=== PATIENT | male | born 1940 | race Caucasian/White ===

== ENCOUNTER 2017-07-30 08:16 | Day surgery (SDC) | payer MEDICARE ==
[~2017-07-30] VITALS: Ht 188 cm; Wt 86.2 kg
--- NOTE | ~2017-07-30 | OP ---
PATIENT NAME: INEZ PEREZ MEDICAL RECORD: [id number] :38 LOCATION:D.OPS ADMISSION DATE: SURGEON: GAETANO CEBALLOS MD DATE OF OPERATION: 07/30/2017 PREOPERATIVE DIAGNOSES: 1. History of multiple gastric polyps. 2. History of anemia. 3. Band-like epigastric abdominal pain. POSTOPERATIVE DIAGNOSES: 1. History of multiple gastric polyps. 2. History of anemia. 3. Band-like epigastric abdominal pain. 4. Three pedunculated cardio-gastric polyps. 5. A large number of diminutive sessile polyps ranging in diameter from 4 mm to 8 mm. 6. Perhaps new polyp which is carpeting polyp that is diminutive in the duodenal bulb, best seen with narrow band imaging. PROCEDURES: 1. Esophagogastroduodenoscopy with antral biopsies. 2. Gastric snare polypectomies times 3. 3. Ablation of 15 sessile polyps utilizing the argon plasma country printer with the esophageal setting in the forced mode. OPERATIVE COURSE: The patient was conveyed to the operating room electively on 07/30/2017. General anesthesia was induced by the anesthesia staff. A bite block was inserted. A gastroscope was inserted into the mouth. It was advanced easily into the hypopharynx. The esophagus was easily intubated as were the stomach and duodenum. Upon withdrawal, retroflexed and angulus views were obtained. Antral biopsies were obtained. I utilized the snare to perform 3 snare polypectomies in the cardia of the stomach. Each one of these polyps were grasped with an endoscopic retrieval net and was withdrawn out through the mouth. I reintubated the stomach. The base of these snare polyps was then ablated utilizing the argon plasma country printer. Fifteen more diminutive polyps were ablated with the argon plasma country printer without the need for biopsy. There was no bleeding. The endoscope was then withdrawn under direct vision. I will see the patient in my office in 2-3 weeks. I will plan for his next EGD with the argon plasma country printer to take place in 1 year. I identified no reason for the patient's epigastric band-like abdominal pain. He has undergone a cholecystectomy in the past. TRANSINT:[id number] Voice Confirmation ID: [id number] DOCUMENT ID: [id number] GAETANO CEBALLOS MD at 0938 CC: [id number] DICTATION DATE: 07/30/17 1315 PEGA DEVELOPER: 07/30/17 1425 [facility] 07/30/17 [place] [id number] [place] [id number]
--- NOTE | ~2017-07-30 | HP ---
PATIENT: INEZ PEREZ MEDICAL RECORD: [id number] ACCOUNT: [id number] LOCATION:SOPHIA : 38 ADMISSION DATE: 07/30/17 HISTORY AND PHYSICAL EXAMINATION CHIEF COMPLAINT: History of gastric polyps. HISTORY OF PRESENT ILLNESS: The patient is here to undergo a gastric polypectomy utilizing the argon plasma follow up clerk. The risks, possible complications and alternatives to procedure were explained to the patient. He elects to proceed. MEDICATIONS: Home medications have been reviewed. ALLERGIES: No known drug allergies. SOCIAL HISTORY: Nonsmoker. PAST MEDICAL AND SURGICAL HISTORY: Hypothyroidism, on replacement therapy, hypertension, history of gastric polyps. REVIEW OF SYSTEMS: Negative for CVA or seizures. Negative for renal disease or hepatitis. PHYSICAL EXAMINATION: GENERAL: The patient does not appear acutely ill. He does not appear chronically ill. VITAL SIGNS: Reviewed. EARS: External ears appear normal. EYES: Extraocular movements are intact. NECK: Trachea is midline. CHEST: No intercostal retractions. PULMONARY: Nonlabored, no stridor. ABDOMEN: Nontender. IMPRESSION: History of multiple gastric polyps. PLAN: EGD with hot polypectomy utilizing argon plasma follow up clerk. TRANSINT:[id number] Voice Confirmation ID: [id number] DOCUMENT ID: [id number] GAETANO CEBALLOS MD at 0938 CC: SUSAN CONWAY MD and DELON GONZALEZ MD [id number] DICTATION DATE: 07/30/17 1229 PRODUCTION EXPERT: 07/30/17 1257 [facility] [place] 07/30/17 [place] [id number]
[~2017-07-30 08:16] MED LIST: AZULFIDINE500 MG PO; CHOLESTYRAMIN4 G/PK1 PO; LEVO-T300 MCG PO; PEPCID20 MG PO; PROTONIX40 MG PO; ULTRAM50 MG PO; ZESTORETIC 20/21 TAB PO
[2017-07-30 08:47] VITALS: BP 131/67; Ht 188 cm; Wt 86.2 kg
[2017-07-30 09:12] LABS: HEMATOCRIT 28.5 % (42.0-54.0); HEMOGLOBIN 9.9 g/dL (13.5-17.5); MCH 28.4 pg (26.0-34.0); MCHC 34.7 g/dL (31.0-37.0); MCV 81.9 fL (80.0-100.0); MEAN PLATELET VOLUME 8.4 fL (7.4-10.4); RBC 3.48 10x6/uL (4.20-6.10); RDW 17.5 % (11.5-14.5); WBC 6.2 10x3/uL (4.8-10.8)
[2017-07-30 09:25] LABS: ANION GAP 12.5 mmol/L (8-16); CALCIUM 8.5 mg/dL (8.5-10.1); CARBON DIOXIDE 24.8 mmol/L (21.0-32.0); CREATININE - SERUM 1.1 mg/dL (0.6-1.3); POTASSIUM - SERUM 4.3 mmol/L (3.5-5.1)
== END 2017-07-30 13:50 | disposition home or self-care (01) ==
LOC: D.OPS 08:16
PROVIDERS: Anesthesiology
DX: K31.7 Polyp of stomach and duodenum (principal); E03.9 Hypothyroidism, unspecified; I10 Essential (primary) hypertension; D64.9 Anemia, unspecified; R10.13 Epigastric pain; Z01.812 Encounter for preprocedural laboratory examination

== ENCOUNTER 2019-08-10 08:28 | Day surgery (SDC) | payer MEDICARE ==
[~2019-08-10] VITALS: Ht 188 cm; Wt 86.4 kg
--- NOTE | ~2019-08-10 | OP ---
PATIENT NAME: INEZ PEREZ MEDICAL RECORD: [id number] :38 LOCATION:D.OPS ADMISSION DATE: SURGEON: GAETANO CEBALLOS MD DATE OF OPERATION: 08/10/2019 PREOPERATIVE DIAGNOSES: 1. History of gastric polyps. 2. Anemia. POSTOPERATIVE DIAGNOSES: 1. History of gastric polyps. 2. Anemia. 3. Numerous sessile as well as somewhat pedunculated gastric polyps. PROCEDURES: 1. Esophagogastroduodenoscopy with antral biopsies to rule out Helicobacter pylori. 2. Snare gastric polypectomies times 2. 3. Hot biopsy forceps polypectomy times 1. 4. Argon plasma coagulation ablation of 23 sessile gastric polyps. SURGEON: Gaetano Ceballos MD HEALTH ADMINISTRATION TEACHER: None. BLOOD LOSS: Less than 25 cc. ANESTHESIA: IV sedation. COMPLICATIONS: None. The risks, possible complications and alternatives to the procedure were explained to the patient. He elects to proceed. ENDOSCOPIC COURSE: The patient was conveyed to endoscopy suite electively on 08/10/2019. IV sedation was induced by the anesthesia staff. A bite block was inserted. A gastroscope was inserted into the mouth. It was advanced easily into the hypopharynx. The esophagus was easily intubated as were the stomach and duodenum. Upon withdrawal, retroflexed and angulus views were obtained. Antral biopsies were obtained. I chose the 2 largest polyps to perform snare polypectomies upon. While in retroflexion, I was able to snare both of these polyps, which were at the gastric cardia. Utilizing the coagulation setting and then the cut setting, I was able to perform the snare polypectomies. The polyps were then removed in their entireties. I then grasped a polyp with the hot biopsy forceps. A hot biopsy forceps polypectomy was then performed. There were other sessile polyps, which were really too small to undergo microscopic examination. These were thoroughly ablated utilizing the esophageal setting in the forced mode, with the argon plasma surveying crew rodman. There was no further bleeding. I withdrew the endoscope under direct vision. OPERATIVE REPORT [id number] INEZ PEREZ I will see the patient in my office in 2-3 weeks. I will plan for his next upper endoscopy to take place whenever he is symptomatic. TRANSINT:[id number] Voice Confirmation ID: [id number] DOCUMENT ID: [id number] GAETANO CEBALLOS MD CC: SUSAN CONWAY MD and DELON GONZALEZ [id number] DICTATION DATE: 08/10/19 1154 SENIOR HEALTH CONSULTANT: 08/10/19 1416 [facility] 08/10/19 [facility] [address] [place] [address]
--- NOTE | ~2019-08-10 | HP ---
PATIENT: INEZ PEREZ MEDICAL RECORD: [id number] ACCOUNT: [id number] LOCATION:SOPHIA : 38 ADMISSION DATE: 08/10/19 PCP: SUSAN CONWAY MD HISTORY AND PHYSICAL EXAMINATION CHIEF COMPLAINT: History of gastric polyps. I performed a gastric polypectomy as well as ablation of numerous gastric polyps on this patient in the past. He has noted no dark looking in stools. He is anemic and this has been fairly persistent. ALLERGIES: No known drug allergies. HOME MEDICATIONS: Please see the nursing list. SOCIAL HISTORY: Nonsmoker. PAST MEDICAL AND SURGICAL HISTORY: Gastric polyps, hypothyroidism, on replacement therapy, hypertension, history of Crohn's disease as well. PHYSICAL EXAMINATION: GENERAL: The patient does not appear acutely ill. He does not appear chronically ill. VITAL SIGNS: Reviewed. EARS: External ears appear normal. EYES: Extraocular movements are intact. NECK: Trachea is midline. CHEST: No intercostal retractions. PULMONARY: Nonlabored, no stridor. IMPRESSION: 1. History of gastric polyps. 2. Anemia. PLAN: EGD with polypectomies or ablation of gastric polyps. TRANSINT:[id number] Voice Confirmation ID: [id number] DOCUMENT ID: [id number] GAETANO CEBALLOS MD CC: SUSAN CONWAY MD and DELON GONZALEZ [id number] DICTATION DATE: 08/10/19 1109 PAPER ROLLER: 08/10/19 1135 [facility] [address] [place] [address]
[2019-08-10 09:06] LABS: ANION GAP 8.4 mmol/L (8-16); CALCIUM 8.3 mg/dL (8.5-10.1); CARBON DIOXIDE 32.3 mmol/L (21.0-32.0); CREATININE - SERUM 1.2 mg/dL (0.6-1.3); POTASSIUM - SERUM 4.7 mmol/L (3.5-5.1)
[2019-08-10 09:07] LABS: BASOPHILS 0.3 % (0-2); EOSINOPHILS 1.5 % (0-7); HEMATOCRIT 31.4 % (42.0-54.0); HEMOGLOBIN 10.6 g/dL (13.5-17.5); IMMATURE GRANULOCYTES 3.9 % (0-5); LYMPHOCYTES 15.3 % (15-50); MCH 27.8 pg (26.0-34.0); MCHC 33.8 g/dL (31.0-37.0); MCV 82.4 fL (80.0-100.0); MEAN PLATELET VOLUME 8.4 fL (7.4-10.4); MONOCYTES 7.8 % (2-11); NEUTROPHILS 71.2 % (40-80); PLATELET COUNT 156 10x3/uL (130-400); RBC 3.81 10x6/uL (4.20-6.10); RDW 16.2 % (11.5-14.5); WBC 5.9 10x3/uL (4.8-10.8)
[2019-08-10 09:31] VITALS: BP 126/61; Ht 188 cm; Wt 86.4 kg
--- NOTE | 2019-08-10 12:14 | NUR ---
1200-RECD FROM GI LAB. ALERT. IV PATENT. TAKING LIQUIDS WITHOUT NAUSEA.
--- NOTE | 2019-08-10 12:35 | NUR ---
1231 IV DC'D. CATHETER TIP INTACT. NO BLEEDING AT SITE. BANDAID APPLIED.
[2019-08-10] MEDS ORDERED: COREG25 MG PO (16:42)
[2019-08-10] MEDS ORDERED: LEVAQUIN750 MG PO (18:52)
== END 2019-08-10 12:39 | disposition home or self-care (01) ==
LOC: D.OPS 08:28
PROVIDERS: Anesthesiology; ATTEND Surgery
DX: K31.7 Polyp of stomach and duodenum (principal); D64.9 Anemia, unspecified

== ENCOUNTER 2019-08-10 16:35 | Emergency (ER) | payer MEDICARE ==
[~2019-08-10] VITALS: Ht 188 cm; Wt 86.4 kg
[2019-08-10 16:38] VITALS: Ht 188 cm; Wt 86.4 kg
[2019-08-10] MEDS ORDERED: COREG25 MG PO (16:42)
[2019-08-10 17:29] LABS: BASOPHILS 0.2 % (0-2); EOSINOPHILS 0.3 % (0-7); HEMATOCRIT 31.9 % (42.0-54.0); IMMATURE GRANULOCYTES 1.7 % (0-5); LYMPHOCYTES 7.2 % (15-50); MCH 28.4 pg (26.0-34.0); MCHC 34.5 g/dL (31.0-37.0); MCV 82.2 fL (80.0-100.0); MEAN PLATELET VOLUME 8.5 fL (7.4-10.4); MONOCYTES 6.4 % (2-11); NEUTROPHILS 84.2 % (40-80); PLATELET COUNT 139 10x3/uL (130-400); RBC 3.88 10x6/uL (4.20-6.10); RDW 16.2 % (11.5-14.5); WBC 10.1 10x3/uL (4.8-10.8)
[2019-08-10 17:36] LABS: CALC OSMOLALITY 282 mosm/kg (275-300); CALCIUM 8.5 mg/dL (8.5-10.1); CARBON DIOXIDE 30.3 mmol/L (21.0-32.0); CHLORIDE - SERUM 105 mmol/L (98-107); CREATININE - SERUM 1.2 mg/dL (0.6-1.3); GLUCOSE 115 mg/dL (74-106); POTASSIUM - SERUM 4.4 mmol/L (3.5-5.1); SODIUM 141 mmol/L (136-145); UREA NITROGEN 15 mg/dL (7-18); eGFR NON AFRICAN AMERICAN 62 mL/min (90-120)
[2019-08-10 17:37] LABS: KETONE - SERUM NEGATIVE (NEGATIVE)
[2019-08-10 17:42] LABS: ALBUMIN 3.2 g/dL (3.4-5.0); ALKALINE PHOSPHATASE 87 U/L (46-116); ALT (SGPT) 13 U/L (10-68); BILIRUBIN - TOTAL 0.97 mg/dL (0.2-1.3); PROTEIN - SERUM 6.5 g/dL (6.4-8.2)
[2019-08-10] MEDS ORDERED: LEVAQUIN750 MG PO (18:52)
[2019-08-10 19:25] VITALS: BP 130/73
== END 2019-08-10 19:25 | disposition home or self-care (01) ==
LOC: D.ER 16:35
PROVIDERS: Family Medicine
DX: J18.1 Lobar pneumonia, unspecified organism (principal); I10 Essential (primary) hypertension; K21.9 Gastro-esophageal reflux disease without esophagitis

== ENCOUNTER → 2020-01-17 16:07 | Outpatient (CLI) | payer MEDICARE ==
[2019-08-10 16:38] VITALS: BMI 24.4
[~2020-01-17 16:07] MED LIST changes: +COREG25 MG PO; +LEVAQUIN750 MG PO
[2020-01-17 17:05] LABS: ALBUMIN 3.1 g/dL (3.4-5.0); ANION GAP 7.3 mmol/L (8-16); BILIRUBIN - TOTAL 0.58 mg/dL (0.2-1.3); CALCIUM 8.1 mg/dL (8.5-10.1); CARBON DIOXIDE 30.7 mmol/L (21.0-32.0); CREATININE - SERUM 1.3 mg/dL (0.6-1.3); PROTEIN - SERUM 5.8 g/dL (6.4-8.2)
[2020-01-17 17:25] LABS: ERYTHROCYTE SEDIMENTATION RATE 16 mm/hr (0-20)
== END | disposition home or self-care (01) ==
LOC: D.LAB 16:07
PROVIDERS: ATTEND Internal Medicine Gastroenterology
DX: R19.7 Diarrhea, unspecified (principal); R10.84 Generalized abdominal pain; K50.90 Crohn's disease, unspecified, without complications